=== PATIENT | male | born 2000 | race Hispanic/Latino ===

== ENCOUNTER 2019-03-17 18:14 | Emergency (ER) | payer SELFPAY ==
--- NOTE | 2019-03-17 19:41 | RAD REPORT ---
EXAM DESCRIPTION: RAD - Chest Pa And Lat (2 Views) - 03/17/2019 7:29 pm CLINICAL HISTORY: COUGH Chest pain. COMPARISON: <Comparisons> FINDINGS: The lungs are clear. The heart is normal in size. No displaced fractures. IMPRESSION: No acute or concerning finding suspected.
--- NOTE | 2019-03-17 20:01 | ER ---
Nurse's Notes [facility] Name: Yosvany Romero Age: 18 yrs Sex: Male : 2000 Arrival Date: 03/17/2019 Time: 18:16 Bed 23 Private MD: Diagnosis: Acute upper respiratory infection, unspecified Presentation: 03/17 18:18 Presenting complaint: Patient states: productive cough for a couple of weeks. Pain with sv inspiration. Transition of care: patient was not received from another setting of care. Onset of symptoms was February 2019. Initial Sepsis Screen: Does the patient meet any 2 criteria? No. Patient's initial sepsis screen is negative. Does the patient have a suspected source of infection? No. Patient's initial sepsis screen is negative. Care prior to arrival: None. 18:18 Method Of Arrival: Ambulatory sv 18:18 Acuity: BINH 3 sv 19:29 Risk Assessment: Do you want to hurt yourself or someone else? Patient reports no ca1 desire to harm self or others. Historical: - Allergies: 18:18 No Known Allergies; sv - PMHx: 18:18 None; sv - PSHx: 18:18 None; sv - Immunization history:: Adult Immunizations up to date. - Social history:: Smoking status: Patient/guardian denies using tobacco. - Ebola Screening: : No symptoms or risks identified at this time. Screenin:25 Abuse screen: Denies threats or abuse. Denies injuries from another. Nutritional ca1 screening: No deficits noted. Tuberculosis screening: No symptoms or risk factors identified. Fall Risk None identified. Assessment: 18:25 General: Appears in no apparent distress. comfortable, Behavior is calm, cooperative, ca1 appropriate for age. Pain: Denies pain. Neuro: Level of Consciousness is awake, alert, obeys commands, Oriented to person, place, time, situation. Cardiovascular: Heart tones S1 S2 present Capillary refill < 3 seconds Patient's skin is warm and dry. Respiratory: Airway is patent Respiratory effort is even, unlabored, Respiratory pattern is regular, symmetrical, Breath sounds are clear bilaterally. Parent/caregiver reports the patient having cough that is non-productive, since 3 weeks ago for the past few days it has become productive with white phlegm. GI: Abdomen is flat, non-distended, Bowel sounds present X 4 quads. Abd is soft and non tender X 4 quads. : No deficits noted. No signs and/or symptoms were reported regarding the genitourinary system. EENT: No deficits noted. No signs and/or symptoms were reported regarding the EENT system. Derm: Skin is intact, is healthy with good turgor, Skin is pink, warm \T\ dry. Musculoskeletal: Circulation, motion, and sensation intact. Capillary refill < 3 seconds. 19:23 Reassessment: Pt to Radiology. ca1 20:00 Reassessment: Patient appears in no apparent distress at this time. Patient and/or ca1 family updated on plan of care and expected duration. Pain level reassessed. Patient is alert, oriented x 3, equal unlabored respirations, skin warm/dry/pink. Vital Signs: 18:19 BP 132 / 77; Pulse 93; Resp 18; Temp 98.6; Pulse Ox 97% ; Weight 63.5 kg; Height 5 ft. sv 2 in. (157.48 cm); Pain 0/10; 19:15 BP 116 / 79; Pulse 85; Resp 17 S; Temp 98.5(O); Pulse Ox 97% on R/A; ca1 20:00 BP 113 / 76; Pulse 92; Resp 16 S; Temp 98.1(O); Pulse Ox 98% on R/A; ca1 18:19 Body Mass Index 25.61 (63.50 kg, 157.48 cm) sv ED Course: 18:16 Patient arrived in ED. as 18:18 Triage completed. sv 18:19 Arm band placed on. sv 18:25 Patient has correct armband on for positive identification. Bed in low position. Call ca1 light in reach. Side rails up X 1. Pulse ox on. NIBP on. Warm blanket given. 18:29 Estiven Samuels NP is PHCP. pm1 18:29 Cody Farooq MD is Attending Physician. pm1 19:02 Emilia Solo, LITO is Primary Nurse. ca1 19:26 Chest Pa And Lat (2 Views) XRAY In Process Unspecified. EDMS 20:19 No provider procedures requiring assistance completed. Patient did not have IV access ca1 during this emergency room visit. Administered Medications: No medications were administered Outcome: 20:00 Discharge ordered by . pm1 20:19 Discharged to home ambulatory, with family. ca1 20:19 Condition: stable 20:19 Discharge instructions given to patient, family, Instructed on discharge instructions, follow up and referral plans. medication usage, Demonstrated understanding of instructions, follow-up care, medications, Prescriptions given X 1. 20:20 Patient left the ED. ca1 Signatures: Dispatcher [employer] EDMS Brenda Jarvis RN RN sv Martinez, Amelia as Marinas, Patrick, QUARTZ MINER QUARTZ MINER pm1 Emilia Solo RN RN ca1 Corrections: (The following items were deleted from the chart) 18:19 18:18 Presenting complaint: Patient states: productive cough for a couple of weeks. sv deidra
--- NOTE | 2019-03-17 20:01 | EDPHYS ---
Physician Documentation [facility] Name: Yosvany Romero Age: 18 yrs Sex: Male : 2000 Arrival Date: 03/17/2019 Time: 18:16 Bed 23 Private MD: ED Physician Cody Farooq HPI: 03/17 18:46 This 18 yrs old Male presents to ER via Ambulatory with complaints of Cough. pm1 18:46 The patient or guardian reports cough, with productive sputum. Onset: The pm1 symptoms/episode began/occurred 3 weeks of cough with onset of productive cough 1 week ago. Severity of symptoms: in the emergency department the symptoms have improved. Modifying factors: The symptoms are alleviated by humidified air per mother the symptoms are aggravated by nothing. Associated signs and symptoms: Pertinent positives: chest pain, with cough, Pertinent negatives: fever, sore throat, SOB. The patient has experienced similar episodes in the past, a few times. The patient has not recently seen a physician. Historical: - Allergies: 18:18 No Known Allergies; sv - PMHx: 18:18 None; sv - PSHx: 18:18 None; sv - Immunization history:: Adult Immunizations up to date. - Social history:: Smoking status: Patient/guardian denies using tobacco. - Ebola Screening: : No symptoms or risks identified at this time. ROS: 18:47 Constitutional: Negative for fever, chills, and weight loss, Eyes: Negative for injury, pm1 pain, redness, and discharge, ENT: Negative for injury, pain, and discharge, Neck: Negative for injury, pain, and swelling, Cardiovascular: Negative for chest pain, palpitations, and edema. 18:47 Abdomen/GI: Negative for abdominal pain, nausea, vomiting, diarrhea, and constipation, Back: Negative for injury and pain, : Negative for injury, bleeding, discharge, and swelling, MS/Extremity: Negative for injury and deformity, Skin: Negative for injury, rash, and discoloration, Neuro: Negative for headache, weakness, numbness, tingling, and seizure. 18:47 Respiratory: Positive for cough, Negative for shortness of breath, wheezing. Exam: 18:47 Constitutional: This is a well developed, well nourished patient who is awake, alert, pm1 and in no acute distress. Head/Face: Normocephalic, atraumatic. Eyes: Pupils equal round and reactive to light, extra-ocular motions intact. Lids and lashes normal. Conjunctiva and sclera are non-icteric and not injected. Cornea within normal limits. Periorbital areas with no swelling, redness, or edema. ENT: Nares patent. No nasal discharge, no septal abnormalities noted. Tympanic membranes are normal and external auditory canals are clear. Oropharynx with no redness, swelling, or masses, exudates, or evidence of obstruction, uvula midline. Mucous membranes moist. Neck: Trachea midline, no thyromegaly or masses palpated, and no cervical lymphadenopathy. Supple, full range of motion without nuchal rigidity, or vertebral point tenderness. No Meningismus. Chest/axilla: Normal chest wall appearance and motion. Nontender with no deformity. No lesions are appreciated. Cardiovascular: Regular rate and rhythm with a normal S1 and S2. No gallops, murmurs, or rubs. Normal PMI, no JVD. No pulse deficits. Respiratory: Lungs have equal breath sounds bilaterally, clear to auscultation and percussion. No rales, rhonchi or wheezes noted. No increased work of breathing, no retractions or nasal flaring. Abdomen/GI: Soft, non-tender, with normal bowel sounds. No distension or tympany. No guarding or rebound. No evidence of tenderness throughout. Back: No spinal tenderness. No costovertebral tenderness. Full range of motion. Skin: Warm, dry with normal turgor. Normal color with no rashes, no lesions, and no evidence of cellulitis. MS/ Extremity: Pulses equal, no cyanosis. Neurovascular intact. Full, normal range of motion. 18:47 Neuro: Orientation: is normal, Motor: is normal, moves all fours, Gait: is steady, at a normal pace, without difficulty. Vital Signs: 18:19 BP 132 / 77; Pulse 93; Resp 18; Temp 98.6; Pulse Ox 97% ; Weight 63.5 kg; Height 5 ft. sv 2 in. (157.48 cm); Pain 0/10; 19:15 BP 116 / 79; Pulse 85; Resp 17 S; Temp 98.5(O); Pulse Ox 97% on R/A; ca1 20:00 BP 113 / 76; Pulse 92; Resp 16 S; Temp 98.1(O); Pulse Ox 98% on R/A; ca1 18:19 Body Mass Index 25.61 (63.50 kg, 157.48 cm) sv MDM: 18:31 Patient medically screened. pm1 19:59 Data reviewed: vital signs. Data interpreted: Pulse oximetry: on room air is 97 %. pm1 Interpretation: normal. Counseling: I had a detailed discussion with the patient and/or guardian regarding: the historical points, exam findings, and any diagnostic results supporting the discharge/admit diagnosis, radiology results, the need for outpatient follow up, to return to the emergency department if symptoms worsen or persist or if there are any questions or concerns that arise at home. 20:00 ED course: Patient requesting cough suppressant so that he may work. 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 03/17 18:35 Order name: Chest Pa And Lat (2 Views) XRAY; Complete Time: 19:48 pm1 Administered Medications: No medications were administered Disposition: 03/17/19 20:00 Discharged to Home. Impression: Acute upper respiratory infection, unspecified. - Condition is Stable. - Discharge Instructions: Upper Respiratory Infection, Adult, Viral Respiratory Infection. - Prescriptions for Guaifenesin AC 10- 100 mg/5 mL Oral Liquid - take 10 milliliter by ORAL route every 4 hours As needed; 240 milliliter. - Medication Reconciliation Form, Thank You Letter, Antibiotic Education, Prescription Opioid Use form. - Follow up: Emergency Department; When: As needed; Reason: Worsening of condition. Follow up: Private Physician; When: 2 - 3 days; Reason: Recheck today's complaints, Continuance of care, Re-evaluation by your physician. - Problem is new. - Symptoms have improved. Addendum: 03/19/2019 06:33 Co-signature as Attending Physician, Cody Farooq MD I agree with the assessment and k dr plan of care. Signatures: Dispatcher [employer] Brenda Oneill, RN RN Cody Jones MD MD kdr Marinas, Patrick, CALCULUS TUTOR CALCULUS TUTOR pm1 Emilia Solo RN RN ca1 Corrections: (The following items were deleted from the chart) 03/17 20:00 20:00 03/17/2019 20:00 Discharged to Home. Impression: Bronchitis, not specified as pm1 acute or chronic. Condition is Stable. Forms are Medication Reconciliation Form, Thank You Letter, Antibiotic Education, Prescription Opioid Use. Follow up: Emergency Department; When: As needed; Reason: Worsening of condition. Follow up: Private Physician; When: 2 - 3 days; Reason: Recheck today's complaints, Continuance of care, Re-evaluation by your physician. Problem is new. Symptoms have improved. pm1 20:20 20:00 03/17/2019 20:00 Discharged to Home. Impression: Acute upper respiratory ca1 infection, unspecified. Condition is Stable. Forms are Medication Reconciliation Form, Thank You Letter, Antibiotic Education, Prescription Opioid Use. Follow up: Emergency Department; When: As needed; Reason: Worsening of condition. Follow up: Private Physician; When: 2 - 3 days; Reason: Recheck today's complaints, Continuance of care, Re-evaluation by your physician. Problem is new. Symptoms have improved. pm1
== END 2019-03-17 20:20 | disposition home or self-care (01) ==
LOC: ER 18:14
DX: J06.9 Acute upper respiratory infection, unspecified (principal)
CPT/HCPCS: 71046; 99283

== ENCOUNTER 2021-04-29 12:39 | Emergency (ER) | payer OTHER, SELFPAY ==
[2021-04-29] MEDS ORDERED: KETOROLAC 30 MG/ML INJ ONE (16:08)
[2021-04-29] MEDS ORDERED: NA CHLORIDE 0.9% 1,000 ML ONE (16:08)
[2021-04-29 16:21] LABS: Absolute Lymphocytes (CBC) 1.2 K/uL (0.7-4.9); Basophils % 0.2 % (0-1.3); Hematocrit 43.7 % (39.6-49.0); Lymphocytes % 9.3 % (15.3-44.8); MPV 8.5 fL (7.6-11.3); RBC Red Blood Cell Count 5.29 M/uL (4.33-5.43)
[2021-04-29 16:31] LABS: Albumin 4.5 g/dL (3.4-5.0); Bilirubin Direct 0.1 mg/dL (0-0.2); Bilirubin Total 0.5 mg/dL (0.2-1.0); Potassium 4.1 mmol/L (3.5-5.1)
--- NOTE | 2021-04-29 17:30 | RAD REPORT ---
EXAM DESCRIPTION: CT - Abdomen Pelvis W Contrast - 04/29/2021 5:11 pm CLINICAL HISTORY: Abdominal pain COMPARISON: none. TECHNIQUE: Computed axial tomography of the abdomen pelvis was obtained. 100 cc Isovue-300 was admin istered intravenously. Oral contrast was not requested which limits evaluation of bowel. All CT scans are performed using dose optimization technique as appropriate and may include automated exposure control or mA/KV adjustment according to patient size. FINDINGS: Mild left hydronephrosis. There is a delay of concentration of contrast within the left ki dney. 2 millimeter calculus left UVJ. The liver, spleen, pancreas, adrenal and right kidney appear unremarkable. There is no evidence of diverticulitis. Small umbilical hernia IMPRESSION: 2 millimeter calculus left UVJ resulting in mild left hydronephrosis
[2021-04-29] MEDS ORDERED: HYDROCODONE/APAP 7.5/325 MG TAB ONE (18:06)
[2021-04-29] MEDS ORDERED: TAMSULOSIN 0.4 MG SR CAP ONE (18:07)
[2021-04-29] MEDS ORDERED: CEFTRIAXONE/SWI 1gm 1 GM/10 ML SYR ONE (18:07)
--- NOTE | 2021-04-29 18:14 | ER ---
Nurse's Notes [facility] Name: Yosvany Romero Age: 20 yrs Sex: Male : 2000 Arrival Date: 04/29/2021 Time: 12:43 Bed 15 Private MD: Diagnosis: Calculus of ureter-left Presentation: 04/29 13:12 Chief complaint: Patient states: LLQ abdominal pain since 1200, feels like pinching, jl7 +N/V, last BM 2 days ago, not passing gas. Coronavirus screen: Client denies travel out of the [place] in the last 14 days. At this time, the client does not indicate any symptoms associated with coronavirus-19. Ebola Screen: No symptoms or risks identified at this time. Initial Sepsis Screen: Does the patient meet any 2 criteria? HR > 90 bpm. No. Patient's initial sepsis screen is negative. Does the patient have a suspected source of infection? No. Patient's initial sepsis screen is negative. Risk Assessment: Do you want to hurt yourself or someone else? Patient reports no desire to harm self or others. Onset of symptoms was April 29, 2021 at 00:00. Care prior to arrival: None. 13:12 Method Of Arrival: Ambulatory [facility] 13:12 Acuity: BINH 3 jl7 Triage Assessment: 13:15 General: Appears in no apparent distress. uncomfortable, Behavior is calm, cooperative, jl7 appropriate for age. Pain: Complains of pain in left lower quadrant Pain does not radiate. Pain currently is 5 out of 10 on a pain scale. Quality of pain is described as pinching, Pain began x 13 hours Is continuous. GI: Reports lower abdominal pain, nausea, vomiting. Historical: - Allergies: 13:15 No Known Allergies; jl7 - Home Meds: 13:15 None [Active]; jl7 - PMHx: 13:15 None; jl7 - PSHx: 13:15 None; jl7 - Immunization history:: Adult Immunizations up to date, Client reports receiving the 2nd dose of the Covid vaccine. - Social history:: Smoking status: Patient denies any tobacco usage or history of. Screenin:06 Abuse screen: Denies threats or abuse. Nutritional screening: No deficits noted. ap3 Tuberculosis screening: No symptoms or risk factors identified. Fall Risk None identified. Assessment: 15:15 General: Appears in no apparent distress. comfortable, Behavior is calm, cooperative, ap3 appropriate for age. Pain: Complains of pain in abdomen Pain radiates to low back area Pain currently is 4 out of 10 on a pain scale. Pain began gradually, 2-3 days ago. Neuro: Level of Consciousness is awake, alert, obeys commands, Oriented to person, place, time, situation, Appropriate for age Moves all extremities. Gait is steady, Speech is normal. Cardiovascular: Capillary refill < 3 seconds. Respiratory: Airway is patent Respiratory effort is even, unlabored, Respiratory pattern is regular, symmetrical. GI: Bowel sounds present X 4 quads. Abd is soft X 4 quads Abdomen is tender to palpation in left upper quadrant and left lower quadrant. GI: Reports vomiting, since yesterday. : No signs and/or symptoms were reported regarding the genitourinary system. EENT: No signs and/or symptoms were reported regarding the EENT system. Derm: No signs and/or symptoms reported regarding the dermatologic system. Vital Signs: 13:12 BP 135 / 88; Pulse 94; Resp 17; Temp 99.3; Pulse Ox 99% on R/A; Weight 68.49 kg (R); jl7 Height 5 ft. 4 in. (162.56 cm) (R); Pain 5/10; 16:09 BP 137 / 95; Pulse 73; Resp 16; Pulse Ox 100% on R/A; ap3 16:49 BP 130 / 84; Pulse 108; Resp 19; Pulse Ox 100% on R/A; ap3 17:56 BP 142 / 99; Pulse 99; Resp 17; Pulse Ox 100% on R/A; Pain 0/10; ap3 13:12 Body Mass Index 25.92 (68.49 kg, 162.56 cm) jl7 ED Course: 12:43 Patient arrived in ED. as 13:15 Triage completed. jl7 13:15 Arm band placed on right wrist. jl7 14:55 Mike Lopez PA is PHCP. cp 14:55 Cody Farooq MD is Attending Physician. cp 15:43 Lana Nails, LITO is Primary Nurse. ap3 16:00 Inserted saline lock: 20 gauge in right antecubital area, using aseptic technique. ap3 Blood collected. 16:06 Patient has correct armband on for positive identification. Bed in low position. Call ap3 light in reach. Side rails up X2. Pulse ox on. NIBP on. Door closed. Noise minimized. 17:10 CT Abd/Pelvis - IV Contrast Only In Process Unspecified. EDMS 18:13 Issac Rahman MD is Referral Physician. cp 18:33 No provider procedures requiring assistance completed. IV discontinued, intact, ap3 bleeding controlled, No redness/swelling at site. Pressure dressing applied. Administered Medications: 16:05 Drug: Ketorolac 15 mg Route: IVP; Site: right antecubital; ap3 16:47 Follow up: Response: No adverse reaction; Pain is decreased ap3 16:05 Drug: NS 0.9% 1000 ml Route: IV; Rate: 1 bolus; Site: right antecubital; ap3 18:32 Follow up: IV Status: Completed infusion; IV Intake: 1000ml ap3 17:00 Drug: NS 0.9% 1000 ml Route: IV; Rate: 1 bolus; Site: right antecubital; ap3 18:32 Follow up: IV Status: Completed infusion; IV Intake: 1000ml ap3 17:52 Drug: Flomax (tamsulosin) 0.4 mg Route: PO; ap3 18:03 Follow up: Response: No adverse reaction ap3 17:53 Drug: Rocephin - (cefTRIAXone) 1 grams Route: IVPB; Infused Over: 30 mins; Site: right ap3 antecubital; 18:32 Follow up: Response: No adverse reaction; IV Status: Completed infusion ap3 17:53 Drug: Hydrocodone-Acetaminophen (7.5 mg-325 mg) 1 tabs {Note: patient awake \T\ alert .} ap3 Route: PO; 18:03 Follow up: Response: No adverse reaction; Pain is decreased ap3 18:04 Drug: Magnesium Sulfate 1 grams Route: IVPB; Infused Over: 20 mins; Site: right ap3 antecubital; 18:32 Follow up: Response: No adverse reaction; IV Status: Completed infusion; IV Intake: ap3 100ml Intake: 18:32 IV: 1000ml; Total: 1000ml. ap3 18:32 IV: 1000ml; Total: 2000ml. ap3 18:32 IV: 100ml; Total: 2100ml. ap3 Outcome: 18:13 Discharge ordered by . cp 18:33 Discharged to home ambulatory. ap3 18:33 Condition: good 18:33 Discharge instructions given to patient, Instructed on discharge instructions, follow up and referral plans. medication usage, Demonstrated understanding of instructions, follow-up care, medications, Prescriptions given X 4. 18:33 Patient left the ED. ap3 Signatures: Dispatcher [employer] EDMS Bere Matos Corey, PA PA cp Leal, Jahala, RN RN jl7 Lana Nails RN RN ap3
--- NOTE | 2021-04-29 18:14 | EDPHYS ---
Physician Documentation [facility] Name: Yosvany Romero Age: 20 yrs Sex: Male : 2000 Arrival Date: 04/29/2021 Time: 12:43 Bed 15 Private MD: ED Physician Cody Farooq HPI: 04/29 15:15 This 20 yrs old Male presents to ER via Ambulatory with complaints of cp Abdominal Pain. 15:15 The patient presents with abdominal pain in the left lower quadrant. Onset: The cp symptoms/episode began/occurred suddenly, today. The symptoms radiate to left back, left groin. Associated signs and symptoms: Pertinent positives: constipation, Pertinent negatives: diarrhea, dysuria, fever, testicular pain, vomiting. The symptoms are described as constant. Historical: - Allergies: 13:15 No Known Allergies; jl7 - Home Meds: 13:15 None [Active]; jl7 - PMHx: 13:15 None; jl7 - PSHx: 13:15 None; jl7 - Immunization history:: Adult Immunizations up to date, Client reports receiving the 2nd dose of the Covid vaccine. - Social history:: Smoking status: Patient denies any tobacco usage or history of. ROS: 15:20 Abdomen/GI: Positive for abdominal pain, nausea, constipation, Negative for vomiting. cp 15:20 Eyes: Negative for injury, pain, redness, and discharge. cp 15:20 Constitutional: Negative for body aches, chills, fever, poor PO intake. Exam: 15:25 Constitutional: The patient appears in no acute distress, alert, awake, non-toxic, well cp developed, well nourished. 15:25 Head/Face: Normocephalic, atraumatic. cp 15:25 Eyes: Periorbital structures: appear normal, Conjunctiva: normal, no exudate, no injection, Sclera: no appreciated abnormality, Lids and lashes: appear normal, bilaterally. 15:25 ENT: External ear(s): are unremarkable, Nose: is normal, Mouth: Lips: moist, Oral mucosa: moist, Posterior pharynx: Airway: no evidence of obstruction, patent. 15:25 Chest/axilla: Inspection: normal, Palpation: is normal, no crepitus, no tenderness. 15:25 Cardiovascular: Rate: normal, Rhythm: regular. 15:25 Respiratory: the patient does not display signs of respiratory distress, Respirations: normal, no use of accessory muscles, no retractions, labored breathing, is not present, Breath sounds: are clear throughout, no decreased breath sounds, no stridor, no wheezing. 15:25 Abdomen/GI: Inspection: abdomen appears normal, Bowel sounds: active, all quadrants, Palpation: soft, in all quadrants, moderate abdominal tenderness, in the left lower quadrant, rebound tenderness, is not appreciated, involuntary guarding, is not appreciated. 15:25 Back: pain, that is moderate, of the left mid back, ROM is normal. Vital Signs: 13:12 BP 135 / 88; Pulse 94; Resp 17; Temp 99.3; Pulse Ox 99% on R/A; Weight 68.49 kg (R); jl7 Height 5 ft. 4 in. (162.56 cm) (R); Pain 5/10; 16:09 BP 137 / 95; Pulse 73; Resp 16; Pulse Ox 100% on R/A; ap3 16:49 BP 130 / 84; Pulse 108; Resp 19; Pulse Ox 100% on R/A; ap3 17:56 BP 142 / 99; Pulse 99; Resp 17; Pulse Ox 100% on R/A; Pain 0/10; ap3 13:12 Body Mass Index 25.92 (68.49 kg, 162.56 cm) 7 MDM: 15:00 Patient medically screened. cp 18:13 Data reviewed: vital signs, nurses notes, lab test result(s), radiologic studies, CT cp scan, and as a result, I will discharge patient. 04/29 15:04 Order name: Basic Metabolic Panel; Complete Time: 16:55 cp 04/29 15:04 Order name: CBC with Diff; Complete Time: 16:55 cp 04/29 15:04 Order name: Hepatic Function; Complete Time: 16:55 cp 04/29 15:04 Order name: Lipase; Complete Time: 16:55 cp 04/29 16:55 Order name: CT Abd/Pelvis - IV Contrast Only; Complete Time: 17:32 cp 04/29 15:04 Order name: IV Saline Lock; Complete Time: 16:05 cp 04/29 15:04 Order name: Labs collected and sent; Complete Time: 16:05 cp Administered Medications: 16:05 Drug: Ketorolac 15 mg Route: IVP; Site: right antecubital; ap3 16:47 Follow up: Response: No adverse reaction; Pain is decreased ap3 16:05 Drug: NS 0.9% 1000 ml Route: IV; Rate: 1 bolus; Site: right antecubital; ap3 18:32 Follow up: IV Status: Completed infusion; IV Intake: 1000ml ap3 17:00 Drug: NS 0.9% 1000 ml Route: IV; Rate: 1 bolus; Site: right antecubital; ap3 18:32 Follow up: IV Status: Completed infusion; IV Intake: 1000ml ap3 17:52 Drug: Flomax (tamsulosin) 0.4 mg Route: PO; ap3 18:03 Follow up: Response: No adverse reaction ap3 17:53 Drug: Rocephin - (cefTRIAXone) 1 grams Route: IVPB; Infused Over: 30 mins; Site: right ap3 antecubital; 18:32 Follow up: Response: No adverse reaction; IV Status: Completed infusion ap3 17:53 Drug: Hydrocodone-Acetaminophen (7.5 mg-325 mg) 1 tabs {Note: patient awake \T\ alert .} ap3 Route: PO; 18:03 Follow up: Response: No adverse reaction; Pain is decreased ap3 18:04 Drug: Magnesium Sulfate 1 grams Route: IVPB; Infused Over: 20 mins; Site: right ap3 antecubital; 18:32 Follow up: Response: No adverse reaction; IV Status: Completed infusion; IV Intake: ap3 100ml Disposition: 04/30 06:41 Co-signature as Attending Physician, Cody Farooq MD I agree with the assessment and kdr plan of care. Disposition Summary: 04/29/21 18:13 Discharge Ordered Location: Home cp Problem: new cp Symptoms: have improved cp Condition: Stable cp Diagnosis - Calculus of ureter - left cp Followup: cp - With: Issac Rahman MD - When: 2 - 3 days - Reason: Worsening of condition Discharge Instructions: - Discharge Summary Sheet cp - Kidney Stones cp - Renal Colic cp Forms: - Medication Reconciliation Form cp - Thank You Letter cp - Antibiotic Education cp - Prescription Opioid Use cp Prescriptions: - Flomax 0.4 mg Oral capsule - take 1 capsule by ORAL route once daily As needed 1/2 hour following the same cp meal each day; 7 capsule; Refills: 0, Product Selection Permitted - Zofran 4 mg Oral Tablet - take 1 tablet by ORAL route every 12 hours As needed; 20 tablet; Refills: 0, cp Product Selection Permitted - Cipro 500 mg Oral Tablet - take 1 tablet by ORAL route every 12 hours for 7 days; 14 tablet; Refills: 0, cp Product Selection Permitted - Tramadol 50 mg Oral Tablet - take 1 tablet by ORAL route every 8 hours as needed; 15 tablet; Refills: 0, cp Product Selection Permitted Signatures: Dispatcher [employer] Cody Montaño MD MD kdr Mike Lopez PA PA cp Leal, Jahala RN RN jl7 Lana Nails RN RN ap3
[2021-04-29] MEDS ORDERED: MAGNESIUM SULFATE 1 gm IVPB 1 GM/100 ML BAG IV ONE (18:20)
[2021-04-29 18:45] VITALS: TEMP 99.3
[2021-04-29 18:46] VITALS: O2SAT 100
[2021-04-29 18:50] VITALS: BP 142/99
== END 2021-04-29 18:33 | disposition home or self-care (01) ==
LOC: ER 12:39
DX: N20.1 Calculus of ureter (principal)
CPT/HCPCS: 96365; 96361; 85025; 80048; 36415; 80076; 83690; 74177; 96375; 99284; Q9967; J3475; J0696; J7030